=== PATIENT | male | born 1955 | race Caucasian/White ===

== ENCOUNTER 2019-01-09 06:47 | Day surgery (SDC) | payer MEDICARE, BC ==
[~2019-01-09 06:47] MED LIST: Dextrose 5%-0.45% NaCl 1,000 ML IV SCH; Midazolam 1 MG/ML 2 ML SDV ONE; Sodium Chloride 0.9% 10 ML Syringe FLUSH PRN; fentaNYL 100 MCG/2 ML SDV ONE
[2019-01-09] MEDS ORDERED: Midazolam 1 MG/ML 2 ML SDV IV ONE ×5 (06:48→08:03)
[2019-01-09] MEDS ORDERED: fentaNYL 100 MCG/2 ML SDV IV ONE ×3 (06:48→07:57)
--- NOTE | 2019-01-09 09:06 | OR ---
DATE: 01/09/2019 PROCEDURE: Total colonoscopy. INSTRUMENT USED: PCF-H190DL Olympus video colonoscope. PREMEDICATIONS: Fentanyl 100 mcg intravenous, Versed 3 mg intravenous. Nasal O2 cannula. 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 INDICATION: The patient with previous colonic tubular adenoma. Surveillance colonoscopic examination is done for detection of any polypoid lesions and removal, endoscopic hemostasis therapy if needed. DESCRIPTION OF PROCEDURE: Initial rectal exam was unremarkable. The colonoscope was passed with ease. A few scattered diverticula were noted in the distal left colon. The colon was found to be a bit redundant, examined a bit prolonged. The scope was passed up to the cecal area. Photographs were taken of the cecum. Identified by double-bulged ileocecal folds. No bleeding was noted from any of the visualized areas at the commencement of the examination. There was moderate amount of fecal material that had to be aspirated. Limiting visualization of few areas. No bleeding was noted from any of the visualized areas at the commencement of the examination. No stricture. No vascular ectasia. No large isolated ulcerations seen. No evidence of diffuse inflammatory bowel disease in the form of friability, contact bleeding, or ulcerations. No polyp or tumor mass identified. Probing the proximal sides of folds and flexures, using adequate distention and clearing of the stool material, withdrawal of the scope was made, cecum to rectum time over 6 minutes. No bleeding was noted from any of the visualized areas at the completion of examination. IMPRESSION: Diverticulosis. The patient tolerated the procedure well. [facility] /[id number]
--- NOTE | 2019-01-09 10:27 | LETTER ---
01/09/2019 Sung Lee MD [address] [address] RE: JOHNATHON NAIK : [address] Lee: Mr. Johnathon Naik had colonoscopic examination done this morning and he tolerated the procedure well. I herewith send a copy of the endoscopy note and photographs for your review. Thank you. Sincerely, [facility] /[id number]
== END 2019-01-09 10:23 | disposition home or self-care (01) ==
LOC: DL.ENDO 06:47
PROVIDERS: ATTEND Internal Medicine Gastroenterology
DX: Z12.11 Encounter for screening for malignant neoplasm of colon (principal); K57.30 Diverticulosis of large intestine without perforation or abscess without bleeding; K21.9 Gastro-esophageal reflux disease without esophagitis; I10 Essential (primary) hypertension; E78.5 Hyperlipidemia, unspecified; E66.8 Other obesity; Z86.010 Personal history of colon polyps
CPT/HCPCS: 45378; J2250; J3010; J7042

== ENCOUNTER 2019-11-29 15:00 | Emergency (ER) | payer MEDICARE, BC ==
[2019-11-29] MEDS ORDERED: Albuterol/Ipratropium 3.0-0.5 MG/3 ML Neb Soln ONE (15:31)
[2019-11-29] MEDS ORDERED: methylPREDNISolone Sodium Succinate 125 MG/2 ML SDV IM ONE (15:34)
[2019-11-29] MEDS ORDERED: Sodium Chloride 0.9% 10 ML Syringe FLUSH PRN (15:34)
[2019-11-29] MEDS ORDERED: methylPREDNISolone Sodium Succinate 125 MG/2 ML SDV IVPUSH ONE (16:08)
[2019-11-29 16:19] LABS: ANION GAP 14.7; CHLORIDE,CL 104 mmol/L (101-111); SODIUM,NA 141 mmol/L (135-145)
[2019-11-29 16:27] LABS: BASE EXCESS ARTERIAL 0 mmol/L ((-2)-(+3)); BICARBONATE,ARTERIAL 23.7 mmol/L (22-26); O2 DELIVERY DEVICE NASAL CANNULA; O2 SATURATION ARTERIAL 94 % (95-100); PCO2 ARTERIAL 38 mmHg (35-45); PO2 ARTERIAL 71 mmHg (70-100)
[2019-11-29 16:32] LABS: ALLEN TEST pos; O2 FLOW RATE 2
--- NOTE | 2019-11-29 17:16 | EDM.PDOC ---
ED HPI GENERAL MEDICAL PROBLEM - General Chief Complaint: Respiratory Problem Stated Complaint: NEBULIZER TREATMENT Time Seen by Provider: 11/29/19 15:11 Source of Information: Reports: Patient, RN, Significant Other History Limitations: Reports: No Limitations - History of Present Illness INITIAL COMMENTS - FREE TEXT/NARRATIVE: 64 year old male who presents to the ER with his for complaints of SOB and chills x 3 days. Patient was discharged from [facility] four days ago after a two week treatment for pneumonia, PE and lung CA. His states patient's last chemo treatment was in Oct, 2019. She reports patient was not given duonebs or antibiotics on discharged. Patient reports SOB and wheezing has gradually gotten worst. He reports mild non productive cough. He has not tried anything for his symptoms. He is currently not on any blood thinners as INR clinic in [place] is monitoring his INR per his . Patient was seen one day prior to this visit and his INR was 3.5. She states patient's Coumadin will be initiated once his INR is between 2-3. Patient denies any Chest pain, palpitations and leg swelling. 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 (see below) (none) - Related Data Allergies Allergy/AdvReac Type Severity Reaction Status Date / Time No Known Allergies Allergy Verified 11/29/19 16:44 Home Meds: Home Meds Rosuvastatin [Crestor] 20 mg PO DAILY 10/14/18 [History] Omeprazole 20 mg PO DAILY 01/08/19 [History] Amiodarone [Cordarone] 200 mg PO DAILY 11/29/19 [History] Benzonatate 200 mg PO TID PRN 11/29/19 [History] Melatonin 5 mg PO BEDTIME 11/29/19 [History] Metoprolol Tartrate 150 mg PO BID 11/29/19 [History] Warfarin [Coumadin] 1 mg PO ASDIRECTED 11/29/19 [History] guaiFENesin [Mucinex] 600 mg PO ASDIRECTED PRN 11/29/19 [History] Past Medical History HEENT History: Reports: None Cardiovascular History: Reports: Afib, Blood Clots/VTE/DVT, High Cholesterol, Hypertension Respiratory History: Reports: Asthma, Pneumonia, Recurrent, SOB Gastrointestinal History: Reports: GERD Genitourinary History: Reports: None Musculoskeletal History: Reports: None Neurological History: Reports: None Psychiatric History: Reports: None Endocrine/Metabolic History: Reports: Obesity/BMI 30+ Hematologic History: Reports: None Immunologic History: Reports: None Oncologic (Cancer) History: Reports: Lung Other Oncologic History: Chemo every 3 weeks at [facility]. Last chemo 10/28/2019 due to hospitalization. Dermatologic History: Reports: None - Infectious Disease History Infectious Disease History: Reports: Chicken Pox, Measles - Past Surgical History Head Surgeries/Procedures: Reports: None HEENT Surgical History: Reports: None Cardiovascular Surgical History: Reports: None Respiratory Surgical History: Reports: None GI Surgical History: Reports: Other (See Below) Other GI Surgeries/Procedures: spleenectomy Endocrine Surgical History: Reports: None Neurological Surgical History: Reports: None Musculoskeletal Surgical History: Reports: Knee Replacement Oncologic Surgical History: Reports: None Dermatological Surgical History: Reports: None Social & Family History - Family History Family Medical History: Noncontributory - Tobacco Use Smoking Status *Q: Former Smoker Used Tobacco, but Quit: Yes Month/Year Tobacco Last Used: 1996 - Caffeine Use Caffeine Use: Reports: Coffee Caffeine Use Comment: 20 oz daily - Living Situation & Occupation Living situation: Reports: with Family ED ROS GENERAL - Review of Systems Review Of Systems: Comprehensive ROS is negative, except as noted in HPI. ED EXAM, GENERAL - Physical Exam Exam: See Below General Appearance: Alert, Moderate Distress Eye Exam: Bilateral Eye: Normal Inspection, PERRL Ears: Normal External Exam, Normal Canal, Hearing Grossly Normal, Normal TMs Nose: Normal Inspection, Normal Mucosa, No Blood Throat/Mouth: Normal Inspection, Normal Lips, Normal Teeth, Normal Gums, Normal Oropharynx, Normal Voice, No Airway Compromise Head: Atraumatic, Normocephalic Neck: Normal Inspection, Supple, Non-Tender, Full Range of Motion Respiratory/Chest: No Accessory Muscle Use, Chest Non-Tender, Wheezing ( moderate inspiratory and expiratory wheezing) Cardiovascular: Normal Peripheral Pulses, Regular Rate, Rhythm, No Edema, No Gallop, No JVD, No Murmur, No Rub GI/Abdominal: Normal Bowel Sounds, Soft, Non-Tender, No Organomegaly, No Distention, No Abnormal Bruit, No Mass Extremities: Normal Inspection, Normal Range of Motion, Non-Tender, Normal Capillary Refill, No Pedal Edema Neurological: Alert, Oriented, CN II-XII Intact, Normal Cognition, Normal Gait, Normal Reflexes, No Motor/Sensory Deficits Psychiatric: Normal Affect, Normal Mood Skin Exam: Warm, Dry, Intact, Normal Color, No Rash Lymphatic: No Adenopathy Course - Vital Signs Last Recorded V/S: Last Vital Signs Temp 98.5 F 11/29/19 15:11 Pulse 47 L 11/29/19 15:11 Resp 20 11/29/19 15:11 BP 167/92 H 11/29/19 15:11 Pulse Ox 94 L 11/29/19 15:11 - Orders/Labs/Meds Labs: Laboratory Tests 11/29/19 11/29/19 11/29/19 Range/Units 15:44 15:44 15:44 WBC 16.7 H (5.0-10.0) 10^3/uL RBC 3.76 L (4.6-6.2) 10^6/uL Hgb 12.1 L (14.0-18.0) g/dL Hct 35.3 L (40.0-54.0) % MCV 93.9 (80-100) fL MCH 32.2 (27.0-34.0) pg MCHC 34.3 (33.0-35.0) g/dL Plt Count 356 (150-450) 10^3/uL Neut % (Auto) 71.0 (42.2-75.2) % Lymph % (Auto) 15.0 L (20.5-50.1) % [place] % (Auto) 12.0 H (2-8) % Eos % (Auto) 1.3 (1.0-3.0) % Baso % (Auto) 0.7 (0.0-1.0) % Add Manual Diff Yes Neutrophils % (Manual) 72 (42-75) % Band Neutrophils % 2 % Lymphocytes % (Manual) 18 L (20-50) % Monocytes % (Manual) 6 (2-8) % Eosinophils % (Manual) 2 (1-3) % PT 13.1 H (9.0-12.0) SEC INR 1.3 H (0.9-1.2) ABG pH (7.35-7.45) ABG pCO2 (35-45) mmHg ABG pO2 (70-100) mmHg ABG HCO3 (22-26) mmol/L ABG O2 Saturation (95-100) % ABG Base Excess ((-2)-(+3)) mmol/L Vinnie Test O2 Delivery Device Oxygen Flow Rate Sodium 141 (135-145) mmol/L Potassium 3.7 (3.6-5.0) mmol/L Chloride 104 (101-111) mmol/L Carbon Dioxide 26.0 (21.0-31.0) mmol/L Anion Gap 14.7 BUN 29 H (7-18) mg/dL Creatinine 2.4 H (0.6-1.3) mg/dL Est Cr Clr Drug Dosing TNP Estimated GFR (MDRD) 27 BUN/Creatinine Ratio 12.08 Glucose 102 (74-105) mg/dL Lactic Acid (0.5-2.0) mmol/L Calcium 8.9 (8.4-10.2) mg/dl Total Bilirubin 0.7 (0.2-1.0) mg/dL AST 25 (10-42) IU/L ALT 24 (10-60) IU/L Alkaline Phosphatase 55 (42-121) IU/L Troponin I < 0.02 (0.00-0.02) ng/ml Total Protein 8.1 (6.7-8.2) g/dl Albumin 3.4 (3.2-5.5) g/dl Globulin 4.7 Albumin/Globulin Ratio 0.72 11/29/19 11/29/19 Range/Units 15:44 16:25 WBC (5.0-10.0) 10^3/uL RBC (4.6-6.2) 10^6/uL Hgb (14.0-18.0) g/dL Hct (40.0-54.0) % MCV (80-100) fL MCH (27.0-34.0) pg MCHC (33.0-35.0) g/dL Plt Count (150-450) 10^3/uL Neut % (Auto) (42.2-75.2) % Lymph % (Auto) (20.5-50.1) % [place] % (Auto) (2-8) % Eos % (Auto) (1.0-3.0) % Baso % (Auto) (0.0-1.0) % Add Manual Diff Neutrophils % (Manual) (42-75) % Band Neutrophils % % Lymphocytes % (Manual) (20-50) % Monocytes % (Manual) (2-8) % Eosinophils % (Manual) (1-3) % PT (9.0-12.0) SEC INR (0.9-1.2) ABG pH 7.41 (7.35-7.45) ABG pCO2 38 (35-45) mmHg ABG pO2 71 (70-100) mmHg ABG HCO3 23.7 (22-26) mmol/L ABG O2 Saturation 94 L (95-100) % ABG Base Excess 0 ((-2)-(+3)) mmol/L Vinnie Test pos O2 Delivery Device Nasal cannula Oxygen Flow Rate 2 Sodium (135-145) mmol/L Potassium (3.6-5.0) mmol/L Chloride (101-111) mmol/L Carbon Dioxide (21.0-31.0) mmol/L Anion Gap BUN (7-18) mg/dL Creatinine (0.6-1.3) mg/dL Est Cr Clr Drug Dosing Estimated GFR (MDRD) BUN/Creatinine Ratio Glucose (74-105) mg/dL Lactic Acid 1.3 (0.5-2.0) mmol/L Calcium (8.4-10.2) mg/dl Total Bilirubin (0.2-1.0) mg/dL AST (10-42) IU/L ALT (10-60) IU/L Alkaline Phosphatase (42-121) IU/L Troponin I (0.00-0.02) ng/ml Total Protein (6.7-8.2) g/dl Albumin (3.2-5.5) g/dl Globulin Albumin/Globulin Ratio Meds: Medications Discontinued Medications Generic Name Dose Route Start Last Admin Trade Name Freq PRN Reason Stop Dose Admin Albuterol/Ipratropium Confirm 11/29/19 15:31 11/29/19 15:35 Duoneb 3.0-0.5 Mg/3 Ml Administered 11/29/19 15:32 3 ml Dose Administration 3 ml .ROUTE .STK-MED ONE Methylprednisolone Sodium Succinate 125 mg 11/29/19 16:08 11/29/19 16:09 Solu-Medrol IVPUSH 11/29/19 16:09 125 mg ONETIME ONE Administration Sodium Chloride 10 ml 11/29/19 15:34 11/29/19 15:43 Saline Flush FLUSH 10 ml ASDIRECTED PRN Administration Keep Vein Open - Radiology Interpretation Free Text/Narrative:: Contrast Amount: Contrast Method: CONFIDENTIALITY STATEMENT This report is intended only for use by the referring physician, and only in accordance with law. If you received this in error, call [phone]. Page 1 of 1 PROCEDURE INFORMATION: Exam: XR Chest, 2 Views Exam date and time: 11/29/2019 3:39 PM Age: 64 years old Clinical indication: Shortness of breath; Additional info: SOB TECHNIQUE: Imaging protocol: XR of the chest Views: 2 views. COMPARISON: CR CHEST PORTABLE 04/29/2008 8:31 AM FINDINGS: Lungs: There is a new focal consolidation in the left lower lobe. Pleural space: There are no pleural effusions present. Heart/Mediastinum: The heart demonstrates mild diffuse enlargement. The pulmonary arteries are not enlarged. Bones/joints: Unremarkable. IMPRESSION: 1. Mild cardiomegaly. 2. Left lower lobe pneumonia. Thank you for allowing us to participate in the care of your patient. - Re-Assessments/Exams Free Text/Narrative Re-Assessment/Exam: Duoneb and Solumedrol 125 mg administered with moderate relief. EKG, labd and chest results reviewed with patient. Consulted with Dr. Valerio who recommended that patient can be discharged home on DuoNeb, prednisone and antibiotics. Patient was in agreement to treament plan. RX for prednisone, Duoneb and Levaquin 750 mg send home with patient. Encouraged to take medications as prescribed. Follow up with PCP in three days. Departure - Departure Time of Disposition: 17:11 Disposition: Home, Self-Care 01 Condition: Fair Clinical Impression: CKD (chronic kidney disease) stage 4, GFR 15-29 ml/min Pneumonia involving left lung Qualifiers: Pneumonia type: due to unspecified organism Lung location: lower lobe of lung Qualified Code(s): J18.9 - Pneumonia, unspecified organism - Discharge Information Instructions: Chronic Kidney Disease, Adult, [id number], Community-Acquired Pneumonia, Adult, [id number] Referrals: PCP,Unobtain [Primary Care Provider] - Forms: ED Department Discharge Additional Instructions: Take medications as prescribed. Rest. Follow up with PCP or returned to the ER if symptoms worsens. Sepsis Event Note - Evaluation Sepsis Screening Result: No Definite Risk - Focused Exam Date Exam was Performed: 12/01/19 Time Exam was Performed: 08:49
== END 2019-11-29 17:45 | disposition home or self-care (01) ==
LOC: DL.ED 15:00
DX: J18.9 Pneumonia, unspecified organism (principal); J44.9 Chronic obstructive pulmonary disease, unspecified; I12.9 Hypertensive chronic kidney disease with stage 1 through stage 4 chronic kidney disease, or unspecified chronic kidney disease; N18.4 Chronic kidney disease, stage 4 (severe); I48.91 Unspecified atrial fibrillation; E78.00 Pure hypercholesterolemia, unspecified; C34.90 Malignant neoplasm of unspecified part of unspecified bronchus or lung; K21.9 Gastro-esophageal reflux disease without esophagitis; E66.9 Obesity, unspecified; Z68.32 Body mass index [BMI] 32.0-32.9, adult; Z87.891 Personal history of nicotine dependence
CPT/HCPCS: 36415; 36600; 71046; 80053; 82803; 83605; 84484; 85025; 85610; 93005; 96374; 99285; J2930; 99283; J7620-GY